=== PATIENT | female | born 1970 | race Caucasian/White ===

== ENCOUNTER 2018-04-11 07:03 | Day surgery (SDC) | payer OTHER ==
[2018-04-10 13:47] VITALS: BMI 27.6
[2018-04-11] MEDS ORDERED: ONDANSETRON 4 MG/2 ML VIAL IVPUSH PRN ×2 (08:35→13:53)
[2018-04-11] MEDS ORDERED: PROMETHAZINE HCL 25 MG/1 ML VIAL IVPUSH PRN (08:35)
[2018-04-11] MEDS ORDERED: oxyCODONE HCL 5 MG TABLET PO PRN (08:35)
[2018-04-11] MEDS ORDERED: ACETAMINOPHEN 325 MG TABLET (FP) PO PRN ×2 (08:36→13:53)
[2018-04-11] MEDS ORDERED: LACTATED RINGERS SOLUTION 1,000 ML IV SCH ×2 (08:45→14:00)
[2018-04-11] MEDS ORDERED: BUPIVACAINE HCL/PF 0.25% (2.5MG/ML) 10 ML VIAL ONE (08:55)
[2018-04-11] MEDS ORDERED: COCAINE HCL 4% TOPICAL SOLUTION 4 ML BOTTLE TP ONE ×2 (08:57→09:50)
[2018-04-11] MEDS ORDERED: PROPOFOL 20 ML ONE (09:00)
[2018-04-11] MEDS ORDERED: MIDAZOLAM HCL 2 MG/2 ML SINGLE DOSE VIAL ONE (09:00)
[2018-04-11] MEDS ORDERED: fentaNYL CITRATE 250 MCG/5 ML VIAL ONE (09:00)
[2018-04-11] MEDS ORDERED: ROCURONIUM BROMIDE 50 MG/5 ML VIAL ONE (09:00)
[2018-04-11] MEDS ORDERED: ceFAZolin SODIUM 1 GM VIAL IVPB ONE (09:30)
[2018-04-11] MEDS ORDERED: ceFAZolin SODIUM 1 GM VIAL ONE (09:37)
[2018-04-11] MEDS ORDERED: BACITRACIN 15 GM TUBE TOPICAL OINTMENT ONE ×2 (09:41→12:13)
[2018-04-11] MEDS ORDERED: DEXAMETHASONE SOD PHOSPHATE 4 MG/1 ML VIAL ONE (10:12)
[2018-04-11] MEDS ORDERED: BENZOIN TINCTURE SWABSTICK TP ONE (12:14)
[2018-04-11] MEDS ORDERED: SODIUM BICARBONATE 8.4% - 50 ML ONE (13:29)
[2018-04-11] MEDS ORDERED: ONDANSETRON 4 MG/2 ML VIAL ONE ×2 (13:38→15:46)
[2018-04-11 17:24] VITALS: BP 125/73; PULSE 76; TEMP 98.1
--- NOTE | 2018-04-12 18:00 | PATH ---
Surgical Pathology Report Patient Name: DANIEL FENTON [facility]. Rec. #: [id number] /Age/Gender: 1970 (Age: 47) / F Account: [id number] Location: [facility] SURGICAL Taken: 04/11/2018 Received: 04/11/2018 Reported: 04/12/2018 Physicians: James Mcrae MD Specimen(s) Received NASAL SEPTUM CARTILAGE Clinical History Deviated nasal septum Final Diagnosis NASAL SEPTUM, CARTILAGE, OPEN RHINOPLASTY/SEPTOPLASTY: FRAGMENTS OF DENSE FIBROCONNECTIVE TISSUE, CARTILAGE, AND BONE Electronically Signed Sejal Trinh M.D. Gross Description Received in formalin labeled "nasal septum cartilage" are multiple irregular fragments of white-arndt focally hemorrhagic fibrocartilaginous soft tissue measuring 2 x 1 x 0.5 cm in aggregate. The entire specimen is submitted in one cassette. MLSZ/04/11/2018 sanml/04/11/2018
--- NOTE | 2018-04-14 16:20 | OP ---
DATE OF OPERATION: 04/11/2018 PREOPERATIVE DIAGNOSES: 1. Deviated nasal septum. 2. Bilateral nasal vestibular stenosis. 3. Bilateral nasal airway obstruction. POSTOPERATIVE DIAGNOSES: 1. Deviated nasal septum. 2. Bilateral nasal vestibular stenosis. 3. Bilateral nasal airway obstruction. PROCEDURES: 1. Open rhinoplasty. 2. Radical submucous resection. 3. Bilateral nasal vestibular stenosis repair with bilateral electrostatic painter grafts. ATTENDING SURGEON: James Mcrae MD ANESTHESIA: General endotracheal. ESTIMATED BLOOD LOSS: 150 mL. SPECIMEN: Nasal septum to Pathology. DRAINS: None. COMPLICATIONS: None. CONDITION: Stable to recovery room, extubated. INDICATIONS: The patient is a 47-year-old female with a long-standing history of nasal airway obstruction. She has previously undergone a septoplasty by another physician and presented with residual septal deviation with associated nasal airway obstruction. In addition, the patient has narrowing of her middle vault and is a good candidate for bilateral nasal vestibular stenosis repair with electrostatic painter grafts. The risks, benefits, and alternatives of the surgery were discussed with the patient in detail and all questions were answered. The risks include but are not limited to bleeding, infection, pain, need for revision or further surgery, residual septal deviation, septal perforation, residual nasal airway obstruction, damage to neighboring structures including nerves, arteries, veins, and tendons. The patient understands these risks and has elected to proceed with surgery. PROCEDURE: After proper identification and marking of the patient in the preoperative holding area, the patient was transported to the operating room, placed supine on the table, and noninvasive anesthesia monitors were applied. Intravenous access was established. General anesthesia was administered and the patient was intubated without difficulty. SCD boots were applied to bilateral lower extremities. Intravenous antibiotics were then given. The patient was then placed onto a stockinette refrigerating engineer head. The nasal hair were then trimmed bilaterally. The nasal skin envelope was then infiltrated with a local anesthetic solution consisting of 0.25% Marcaine mixed in a 1:1 fashion with 1% lidocaine with 1:100,000 units of epinephrine. A total of 10 mL were used. The same local anesthetic solution was then infiltrated into the mucoperichondrium of the nasal septum. There was noted to be scarring along the nasal septum consistent with the patient's previous septoplasty. A total of 8 mL of local anesthesia were injected into the nasal septum. The bilateral nasal passages were then packed with 1/4-inch cottonoids which had been soaked in 4% cocaine solution. At this point, a throat pack was placed and the patient's face was prepped and draped in the usual sterile fashion. After a timeout was performed, attention was first turned towards the open rhinoplasty. A transcolumellar incision was made with a number 15 blade. This was continued intranasally along the membranous portion of the caudal septum and along the alar rims bilaterally. The converse-tip scissors was then used to completely deglove the nose just above the level of the nasal cartilages. There was noted to be significant hypertrophy of the lower lateral cartilages. At this point, attention was turned towards the nasal dorsum, where a nasal rasp was used to contour bilateral nasal bones in order to remove any bony irregularities. A small dorsal hump reduction was then performed as well using a number 15 blade and a Kamla scissors. Prior to the dorsal hump reduction, the dorsal septum was isolated from bilateral upper lateral cartilages. Once this was completed, attention was turned towards the septum. The nasal packing was removed. Inside the left nasal passage, there was noted to be deviation of the caudal portion of the L strut into the left nasal passage with associated nasal airway narrowing. An L-shaped León incision was then made with electrocautery and this was carried down through the mucoperichondrium. A mucoperichondrial flap on the patient's left side was then elevated off of the residual septal cartilage and continued along the nasal floor, where there was noted to be significant bony spur occluding the nasal airway. A small hole in the mucoperichondrium was noticed at the junction of the previous submucous resection and residual septal cartilage. The nasal mucosa was elevated off of the nasal floor as well in order to uncover the bony spur, which appeared to be the vomer deviated into the nasal airway. At this point, a resection of the deviated portion of the residual caudal portion of the septal cartilage was performed with a number 15 blade. This cartilage was placed into a sterile specimen cup with normal saline. Next, attention was turned towards the bony septum. A combination of a pituitary as well as a 4-mm osteotome were used to resect the vomer along the left nasal floor. Once an adequate bony resection had been performed, the nasal passages were irrigated. The septal mucosal flaps were then reapproximated to each other using a 4-0 plain gut suture in a running horizontal mattress fashion. Once this was completed, attention was turned back towards the nose. A bilateral cephalic trim of the lower lateral cartilages was marked, and a number 15 blade was used to incise the lower lateral cartilages and the cephalic trim was then performed bilaterally using a converse-tip scissors. The resected lower lateral cartilage was placed into the sterile specimen cup as well. Next, attention was turned towards the middle vault. A Juab elevator was used to mobilize bilateral upper lateral cartilages away from the nasal septum. Once this was performed, bilateral electrostatic painter grafts were fashioned from the harvested cartilage. The electrostatic painter grafts were placed between the dorsal septum and the upper lateral cartilages on each side. They were secured using a 4-0 Monocryl suture in an interrupted horizontal mattress fashion. There was noted to be a significant improvement in the width of the middle vault after the bilateral electrostatic painter grafts were secured. At this point, the nasal skin flap was redraped. The residual harvested cartilage was placed between the medial crura of the lower lateral cartilages as a columellar strut. This was sewn into place using a 4-0 Monocryl in an interrupted horizontal mattress fashion. At this point, the 4-0 Monocryl was used to perform interdomal tip-defining sutures. There was noted to be significant improvement in the tip width and projection. Once the tip definition was completed, the nasal pocket was irrigated and hemostasis was ensured. The nasal skin flap was redraped. There was noted to be a significant improvement in the patient's nasal septal deviation as well as the narrowing of the middle vault, therefore a 6-0 nylon suture was used to close the transcolumellar incision in a simple interrupted fashion. The intranasal portions were closed with a 5-0 plain gut in a simple interrupted fashion. Next, bilateral nasal packing was placed after being coated with bacitracin ointment. The nasal packings were secured to each other using a 2-0 silk suture tied loosely over the columella. At this point, the patient's face was washed, the throat pack was removed, and the stomach evacuated of all contents. Mastisol and Steri-Strips were placed over the nose, followed by an Aquaplast nasal splint. The patient at this point was slowly awakened and extubated and transported to recovery room in stable condition. JAMES MCRAE M.D. ERLIN/[id number]
== END 2018-04-11 16:50 | disposition home or self-care (01) ==
LOC: JASU-SURG 07:03
PROVIDERS: ATTEND Plastic Surgery
PROC: 09BM0ZZ Excision of Nasal Septum, Open Approach (ICD-10-PCS; 2018-04-11)
PROC: 09UK07Z Supplement Nasal Mucosa and Soft Tissue with Autologous Tissue Substitute, Open Approach (ICD-10-PCS; 2018-04-11)
PROC: 09UK0JZ Supplement Nasal Mucosa and Soft Tissue with Synthetic Substitute, Open Approach (ICD-10-PCS; principal; 2018-04-11 08:30)
DX: J34.2 Deviated nasal septum (principal); J34.89 Other specified disorders of nose and nasal sinuses; J98.8 Other specified respiratory disorders
CPT/HCPCS: 88304-TC; 94760